=== PATIENT | male | born 1990 | race Caucasian/White ===

== ENCOUNTER 2022-05-24 00:51 | Emergency (ER) | payer OTHER ==
[~2022-05-24] VITALS: Ht 193 cm; Wt 127.0 kg
[2022-05-24 02:08] LABS: BASOPHILS PERCENT AUTO 1 % (0-2); EOSINOPHILS ABSOLUTE AUTO 0.14 K/mm3 (0.00-0.68); EOSINOPHILS PERCENT AUTO 1 % (0-6); Hematocrit 41.3 % (37.0-53.0); Hemoglobin 14.2 g/dL (13.5-17.5); IMMATURE GRAN ABSOLUTE AUTO 0.04 K/mm3 (0.00-0.10); IMMATURE GRAN PERCENT AUTO 0 % (0-1); LYMPHOCYTES PERCENT AUTO 21 % (21-46); MONOCYTES ABSOLUTE AUTO 1.47 K/mm3 (0.16-1.47); MONOCYTES PERCENT AUTO 12 % (4-13); Mean Corpuscular HGB 31.4 pg (26.0-34.0); Mean Corpuscular HGB Conc 34.4 g/dL (31.5-36.5); Mean Corpuscular Volume 91 fL (80-100); Mean Platelet Volume 10.2 fL (9.1-12.4); NEUTROPHILS ABSOLUTE AUTO 7.84 K/mm3 (1.96-9.15); NEUTROPHILS PERCENT AUTO 65 % (41-73); Platelet Count 281 K/mm3 (150-400); RDW Coefficient Variation 11.7 % (11.7-14.2); RDW Standard Deviation 39.4 fL (35.1-46.3); Red Blood Cell Count 4.52 M/mm3 (4.30-5.90); White Blood Cell Count 12.09 K/mm3 (4.00-11.30)
[2022-05-24 05:46] LABS: Hematocrit 41.5 % (37.0-53.0); Hemoglobin 13.9 g/dL (13.5-17.5); Mean Corpuscular HGB 30.8 pg (26.0-34.0); Mean Corpuscular HGB Conc 33.5 g/dL (31.5-36.5); Mean Corpuscular Volume 92 fL (80-100); Mean Platelet Volume 10.1 fL (9.1-12.4); Platelet Count 294 K/mm3 (150-400); RDW Coefficient Variation 11.8 % (11.7-14.2); Red Blood Cell Count 4.51 M/mm3 (4.30-5.90); White Blood Cell Count 13.61 K/mm3 (4.00-11.30)
== END 2022-05-24 06:47 | disposition home or self-care (01) ==
LOC: ER 00:51
PROVIDERS: Student in an Organized Health Care Education/Training Program
DX: K92.1 Melena (principal); Z98.890 Other specified postprocedural states
CPT/HCPCS: 36415; 85025; 85027